=== PATIENT | female | born 1985 | race Caucasian/White ===

== ENCOUNTER 2016-08-05 12:41 | Emergency (ER) | payer OTHER ==
--- NOTE | 2016-08-05 13:45 | ED CLINICAL REPORT ---
Clinical Report - Physicians/Mid Levels [facility] [address] [place] [place] [address] 08/05/2016 12:42 Patient: CARLEEN COX Time Seen: 1300 Aug 05 2016. Arrived- By private vehicle. Historian- patient. HISTORY OF PRESENT ILLNESS Chief Complaint: COUGH. This started just prior to arrival and is still present. The illness is described as mild. No difficulty breathing, chest pain, fever, muscle aches or chills. No sore throat, hoarseness or nasal congestion. Additional history - No known contact with a sick individual. (29 week iup, who reports she has had a cough over the last 7 or 8 days, worsening over the last 2 days, some aspects of shortness of breath. No vag bleeding, at times has minor non frequent contracts, her correction officer city or county jail reports these are viki card, none today. Some sick contacts, at home, including her kids. NO h/o pe/ dvt, no le swelling. NO chest pain, no new back pain.). REVIEW OF SYSTEMS No headache, vomiting, diarrhea, pedal edema or calf pain. No skin rash. Currently . All systems otherwise negative, except as recorded above. SOCIAL HISTORY Never smoker. No alcohol use or drug use. ADDITIONAL NOTES The nursing notes have been reviewed. PHYSICAL EXAM Vital Signs: 08/05/2016 12:51 BP: 141/74. HR: 98. RR: 18. O2 saturation: 96%. Temp: 98.1 F. Pain level now: 0/10. Appearance: Alert. No acute distress. Eyes: Eyes normal inspection. ENT: Pharynx normal. Uvula midline. No mouth ulcerations or tonsillar exudate. Neck: Normal inspection. No meningeal signs. CVS: Normal heart rate and rhythm. Heart sounds normal. Normal rhythm. Respiratory: No respiratory distress. Breath sounds normal. No retractions or splinting. Abdomen: Gravid uterus (slightly above umbilicus). No abdominal tenderness. Back: Normal inspection. Skin: Skin warm. Normal skin color. PROGRESS AND PROCEDURES Course of Care: FHT 145-155 Patient in the ER is afebrile, lungs clear, good O2 sat, tachycardia. patient with negative rapid influenza in there, given persistent symptoms, an third trimester patient, will treat with azithromycin. patient has good follow up. Patient is stable. Physical exam findings are improved. Symptoms better. Patient/family counseled. Disposition: Discharged. CLINICAL IMPRESSION Acute bronchitis. INSTRUCTIONS Drink plenty of fluids. Prescription Medications: Zithromax 250 mg tablets: take 2 orally today, followed by 1 daily for the next 4 days. No refills. Substitution is permissible. OTC Medications: Acetaminophen (available over the counter): take according to label instructions. Follow-up: Follow up with your doctor in three days. (Electronically signed by Fang Brower P.A.-C 08/05/2016 14:04)
--- NOTE | 2016-08-05 13:45 | ED ORDER SUMMARY ---
..... Patient: CARLEEN COX OrderSheet [facility] VisitID: [id number] [address] [place] [address] 30y, F Registration Date/Time: 08/05/2016 ORDER SHEET Weight: 86.1 kg (stated) Allergies: None GENERAL ORDERS: Rapid Influenza Screen (Nasal Pharyngeal) (nasal) Urgent (12:58 08/05/2016 JBoardley R.N. per protocol) (12:59 [facility]) Heart Tones (12:59 08/05/2016 Amie R.N. per protocol) (13:04 [facility]) Heart Tones (13:00 08/05/2016 August Chambers) (Cancelled: Duplicate Order13:04 [facility]) MEDICATION ORDERS: IV FLUIDS: ORDER SHEET NOTES: [Electronically signed by Fang Brower P.A.-C (14:04 08/05/2016)] [Electronically signed by Cade Altamirano R.N. (15:48 08/05/2016)] [Electronically locked/signed by Cade Altamirano R.N. (15:48 08/05/2016)]
--- NOTE | 2016-08-05 13:45 | ED ORDER SUMMARY ---
..... Patient: CARLEEN COX OrderSheet [facility] VisitID: [id number] [address] [place] [address] 30y, F Registration Date/Time: 08/05/2016 ORDER SHEET Weight: 86.1 kg (stated) Allergies: None GENERAL ORDERS: Rapid Influenza Screen (Nasal Pharyngeal) (nasal) Urgent (12:58 08/05/2016 JBoardley R.N. per protocol) (12:59 [facility]) Heart Tones (12:59 08/05/2016 Amie R.N. per protocol) (13:04 [facility]) Heart Tones (13:00 08/05/2016 August Chambers) (Cancelled: Duplicate Order13:04 [facility]) MEDICATION ORDERS: IV FLUIDS: ORDER SHEET NOTES: [Electronically signed by Fang Brower P.A.-C (14:04 08/05/2016)] [Electronically signed by Cade Altamirano R.N. (15:48 08/05/2016)] [Electronically locked/signed by Cade Altamirano R.N. (15:48 08/05/2016)]
--- NOTE | 2016-08-05 13:45 | ED CLINICAL REPORT ---
Clinical Report - Physicians/Mid Levels [facility] [address] [place] [place] [address] 08/05/2016 12:42 Patient: CARLEEN COX Time Seen: 1300 Aug 05 2016. Arrived- By private vehicle. Historian- patient. HISTORY OF PRESENT ILLNESS Chief Complaint: COUGH. This started just prior to arrival and is still present. The illness is described as mild. No difficulty breathing, chest pain, fever, muscle aches or chills. No sore throat, hoarseness or nasal congestion. Additional history - No known contact with a sick individual. (29 week iup, who reports she has had a cough over the last 7 or 8 days, worsening over the last 2 days, some aspects of shortness of breath. No vag bleeding, at times has minor non frequent contracts, her traffic assistant reports these are viki card, none today. Some sick contacts, at home, including her kids. NO h/o pe/ dvt, no le swelling. NO chest pain, no new back pain.). REVIEW OF SYSTEMS No headache, vomiting, diarrhea, pedal edema or calf pain. No skin rash. Currently . All systems otherwise negative, except as recorded above. SOCIAL HISTORY Never smoker. No alcohol use or drug use. ADDITIONAL NOTES The nursing notes have been reviewed. PHYSICAL EXAM Vital Signs: 08/05/2016 12:51 BP: 141/74. HR: 98. RR: 18. O2 saturation: 96%. Temp: 98.1 F. Pain level now: 0/10. Appearance: Alert. No acute distress. Eyes: Eyes normal inspection. ENT: Pharynx normal. Uvula midline. No mouth ulcerations or tonsillar exudate. Neck: Normal inspection. No meningeal signs. CVS: Normal heart rate and rhythm. Heart sounds normal. Normal rhythm. Respiratory: No respiratory distress. Breath sounds normal. No retractions or splinting. Abdomen: Gravid uterus (slightly above umbilicus). No abdominal tenderness. Back: Normal inspection. Skin: Skin warm. Normal skin color. PROGRESS AND PROCEDURES Course of Care: FHT 145-155 Patient in the ER is afebrile, lungs clear, good O2 sat, tachycardia. patient with negative rapid influenza in there, given persistent symptoms, an third trimester patient, will treat with azithromycin. patient has good follow up. Patient is stable. Physical exam findings are improved. Symptoms better. Patient/family counseled. Disposition: Discharged. CLINICAL IMPRESSION Acute bronchitis. INSTRUCTIONS Drink plenty of fluids. Prescription Medications: Zithromax 250 mg tablets: take 2 orally today, followed by 1 daily for the next 4 days. No refills. Substitution is permissible. OTC Medications: Acetaminophen (available over the counter): take according to label instructions. Follow-up: Follow up with your doctor in three days. (Electronically signed by Fang Brower P.A.-C 08/05/2016 14:04)
--- NOTE | 2016-08-05 13:45 | ED NURSING NOTES ---
Clinical Report - Nurses [facility] [address] [place] [address] 08/05/2016 12:42 Patient: CARLEEN COX TRIAGE Triage time 12:51. Acuity: LEVEL 4. Chief Complaint: Possible FLU EXPOSURE. 12:51 08/05/16. 12:51 08/05/16. Alert. No acute distress. --12:55 Cade Altamirano R.N. 12:51 08/05/16. BP: 141/74. HR: 98. RR: 18. O2 saturation: 96% on room air. Temp: 98.1 F (oral). Pain level now: 0/10. --12:55 Cade Altamirano R.N. HEART TONES: heart tones present (145 - 155). --13:13 Tatiana Menon. Weight: 86.1 kg stated. Height/Length: 62 inches Per Patient. BMI: 34.8. --12:51 Cade Altamirano R.N. Medications Vitamins Oral. --12:53 Cade Altamirano R.N. Medication/allergy information source: the patient. --12:55 Cade Altamirano R.N. Allergies None. --12:53 Cade Altamirano R.N. History Arrived by public transportation and accompanied by family. Primary physician (SUZANNE GARDNER LM). 12:51 08/05/16. Onset. (2 days). She has had contact with a sick family member. Treatment WOOD BARKER: None. PAST MEDICAL HX: Last normal menstrual period- December 2015. Confirmed . Has had care. Immunizations not up to date. SOCIAL HX: Never smoker. No alcohol use or drug use. No recent travel. She has had contact with a sick individual. ABUSE ASSESSMENT: No report of abuse. FALL RISK ASSESSMENT: Fall risk assessment completed. No fall risk identified. NUTRITIONAL RISK ASSESSMENT: The nutritional risk assessment revealed no deficiencies. FUNCTIONAL ASSESSMENT: Functional assessment: no impairments noted. LEARNING NEEDS ASSESSMENT: The learning needs assessment revealed no barriers. SKIN INTEGRITY ASSESSMENT: Skin integrity risk assessment completed. No skin integrity risk identified. --12:55 Cade Altamirano R.N. ADDITIONAL SURGERIES: no known surgeries. Assessment 12:51 08/05/16. --12:55 Cade Altamirano R.N. Interventions 12:51 08/05/16. 12:51 08/05/16. ID and allergy band on patient. To treatment room. --12:55 Cade Altamirano R.N. PHYSICAL ASSESSMENT 12:08/05/16. Ambulatory to room. GENERAL / NEURO / PSYCH: Alert. Oriented X 4. Appears in no acute distress. RESPIRATORY: Respirations not labored. SKIN: Skin is warm and dry. --12:55 Cade Altamirano R.N. NURSING PROGRESS NOTES 12:55 08/05/16. The plan of care for this patient has been created. Patient gowned. Head of bed elevated. Reassurance given. Two patient identifiers checked. Call light placed in reach. Side rails up x 2. Bed placed in lowest position. Brakes of bed on. Brakes of chair on. --12:55 Cade Altamirano R.N. 12:08/05/16. Patient ready for evaluation- chart flagged and notification provided. --12:55 Cade Altamirano R.N. Checked patient name and birthdate: patient confirmed. Flu swab obtained by RN via nasal pharyngeal swab. Labeled in the presence of the patient. --12:58 Tatiana Menon 12:58 08/05/16. Patient ID band checked for patient name and birthdate. Flu swab obtained by RN via nasal pharyngeal swab. Labeled in the presence of the patient and sent to lab. --12:58 Cade Altamirano R.N. DISPOSITION / DISCHARGE 13:47 08/05/16. Condition at departure: improved. The goals identified in the patient's plan of care were met. No learning barriers present. Discharge instructions provided and reviewed with the patient. Reviewed warnings. Reviewed medication(s). Treatments reviewed. Patient verbalized understanding. Written instructions provided in [place]. The patient was discharged by the physician team assistant. She was discharged home and accompanied by family. She left the Emergency Department ambulatory and via private vehicle. Family member driving. FALL RISK ASSESSMENT: Fall risk assessment completed. No fall risk identified. --13:47 Cade Altamirano R.N. 13:46 08/05/16. BP: 134/72. HR: 80. RR: 14. O2 saturation: 100% on room air. Temp: 98.2 F (oral). --13:47 Cade Altamirano R.N. 13:47 08/05/16. Departure time: 13:47. --13:47 Cade Altamirano R.N. Locked/Released at 08/05/2016 15:48 by Cade Altamirano R.N.
--- NOTE | 2016-08-05 13:45 | ED NURSING NOTES ---
Clinical Report - Nurses [facility] [address] [place] [address] 08/05/2016 12:42 Patient: CARLEEN COX TRIAGE Triage time 12:51. Acuity: LEVEL 4. Chief Complaint: Possible FLU EXPOSURE. 12:51 08/05/16. 12:51 08/05/16. Alert. No acute distress. --12:55 Cade Altamirano R.N. 12:51 08/05/16. BP: 141/74. HR: 98. RR: 18. O2 saturation: 96% on room air. Temp: 98.1 F (oral). Pain level now: 0/10. --12:55 Cade Altamirano R.N. HEART TONES: heart tones present (145 - 155). --13:13 Tatiana Menon. Weight: 86.1 kg stated. Height/Length: 62 inches Per Patient. BMI: 34.8. --12:51 Cade Altamirano R.N. Medications Vitamins Oral. --12:53 Cade Altamirano R.N. Medication/allergy information source: the patient. --12:55 Cade Altamirano R.N. Allergies None. --12:53 Cade Altamirano R.N. History Arrived by public transportation and accompanied by family. Primary physician (SUZANNE GARDNER LM). 12:51 08/05/16. Onset. (2 days). She has had contact with a sick family member. Treatment SECURITY AND PRIVACY CONSULTANT: None. PAST MEDICAL HX: Last normal menstrual period- December 2015. Confirmed . Has had care. Immunizations not up to date. SOCIAL HX: Never smoker. No alcohol use or drug use. No recent travel. She has had contact with a sick individual. ABUSE ASSESSMENT: No report of abuse. FALL RISK ASSESSMENT: Fall risk assessment completed. No fall risk identified. NUTRITIONAL RISK ASSESSMENT: The nutritional risk assessment revealed no deficiencies. FUNCTIONAL ASSESSMENT: Functional assessment: no impairments noted. LEARNING NEEDS ASSESSMENT: The learning needs assessment revealed no barriers. SKIN INTEGRITY ASSESSMENT: Skin integrity risk assessment completed. No skin integrity risk identified. --12:55 Cade Altamirano R.N. ADDITIONAL SURGERIES: no known surgeries. Assessment 12:51 08/05/16. --12:55 Cade Altamirano R.N. Interventions 12:51 08/05/16. 12:51 08/05/16. ID and allergy band on patient. To treatment room. --12:55 Cade Altamirano R.N. PHYSICAL ASSESSMENT 12:08/05/16. Ambulatory to room. GENERAL / NEURO / PSYCH: Alert. Oriented X 4. Appears in no acute distress. RESPIRATORY: Respirations not labored. SKIN: Skin is warm and dry. --12:55 Cade Altamirano R.N. NURSING PROGRESS NOTES 12:55 08/05/16. The plan of care for this patient has been created. Patient gowned. Head of bed elevated. Reassurance given. Two patient identifiers checked. Call light placed in reach. Side rails up x 2. Bed placed in lowest position. Brakes of bed on. Brakes of chair on. --12:55 Cade Altamirano R.N. 12:08/05/16. Patient ready for evaluation- chart flagged and notification provided. --12:55 Cade Altamirano R.N. Checked patient name and birthdate: patient confirmed. Flu swab obtained by RN via nasal pharyngeal swab. Labeled in the presence of the patient. --12:58 Tatiana Menon 12:58 08/05/16. Patient ID band checked for patient name and birthdate. Flu swab obtained by RN via nasal pharyngeal swab. Labeled in the presence of the patient and sent to lab. --12:58 Cade Altamirano R.N. DISPOSITION / DISCHARGE 13:47 08/05/16. Condition at departure: improved. The goals identified in the patient's plan of care were met. No learning barriers present. Discharge instructions provided and reviewed with the patient. Reviewed warnings. Reviewed medication(s). Treatments reviewed. Patient verbalized understanding. Written instructions provided in Ukrainian. The patient was discharged by the physician assistant teacher. She was discharged home and accompanied by family. She left the Emergency Department ambulatory and via private vehicle. Family member driving. FALL RISK ASSESSMENT: Fall risk assessment completed. No fall risk identified. --13:47 Cade Altamirano R.N. 13:46 08/05/16. BP: 134/72. HR: 80. RR: 14. O2 saturation: 100% on room air. Temp: 98.2 F (oral). --13:47 Cade Altamirano R.N. 13:47 08/05/16. Departure time: 13:47. --13:47 Cade Altamirano R.N. Locked/Released at 08/05/2016 15:48 by Cade Altamirano R.N.
--- NOTE | 2016-08-05 15:48 | ED MED RECONCILIATION SUMMARY ---
Patient: CARLEEN COX Medication Reconciliation Report [facility] VisitID: [id number] [place] [address] 30y, F Registration Date/Time: 08/05/2016 Weight: 86.1 kg Height/Length: 62 in. BMI: 34.8 ALLERGIES: None The patient's Home Medications are listed below: THE FOLLOWING MEDICATIONS NEED TO BE RECONCILED: Vitamins Oral The source(s) of the original Home Medication information: patient The following Medications were given to the patient in the Emergency Department: None. The following Medications were prescribed to the patient: Acetaminophen (available over the counter): take according to label instructions. -- Fang Brower, P.A.-Kaci Zithromax 250 mg tablets: take 2 orally today, followed by 1 daily for the next 4 days. No refills. Substitution is permissible. -- Fang Brower, P.A.-C
--- NOTE | 2016-08-05 15:48 | ED MAR SUMMARY ---
..... Medication Administration Record [facility] [address] [place], [place] [id number] Patient: CARLEEN COX Visit ID: [id number] 30y, F Weight: 86.1 kg Height/Length: 62 in BMI: 34.8 ALLERGIES: None
--- NOTE | 2016-08-05 15:48 | ED DISCHARGE INSTRUCTIONS ---
Patient: CARLEEN COX General Instructions [facility] VisitID: [id number] [place] [address] 30y, F Registration Date/Time: 08/05/2016 Acute bronchitis. INSTRUCTIONS Drink plenty of fluids. Prescription Medications: Zithromax 250 mg tablets: take 2 orally today, followed by 1 daily for the next 4 days. No refills. Substitution is permissible. OTC Medications: Acetaminophen (available over the counter): take according to label instructions. Follow-up: Follow up with your doctor in three days. ADDITIONAL INFORMATION Bronchitis (Adult: Abx Tx) BRONCHITIS is an infection of the air passages (bronchial tubes). It often occurs during the common cold. Symptoms include cough with mucus (phlegm) and low-grade fever. Bronchitis usually lasts 7-14 days. Mild cases can be treated with simple home remedies. More severe infection is treated with an antibiotic. Home Care: If symptoms are severe, rest at home for the first 2-3 days. When you resume activity, don't let yourself get too tired. Do not smoke. Avoid being exposed to the smoke of others. You may use acetaminophen (Tylenol) or ibuprofen (Motrin, Advil) to control fever or pain, unless another medicine was prescribed for this. [NOTE: If you have chronic liver or kidney disease or ever had a stomach ulcer or GI bleeding, talk with your doctor before using these medicines.] Your appetite may be poor, so a light diet is fine. Avoid dehydration by drinking 6-8 glasses of fluids per day (water, soft, drinks, juices, tea, soup, etc.). Extra fluids will help loosen secretions in the lungs. [id number] cough medicines that containdextromethorphan(such as Robitussin DM) and decongestants (Actifed or Sudafed) may help relieve cough and congestion. [NOTE: Do not use decongestants if you have high blood pressure.] Finish all antibiotic medicine, even if you are feeling better after only a few days. Follow Up with your doctor or as directed if you dont start to feel better after three days. [NOTE: If you are age 65 or older, or if you have chronic asthma or COPD, we recommend a PNEUMOCOCCAL VACCINATION every five years and a yearly INFLUENZAVACCINATION (FLU-SHOT) every . Ask your doctor about this. If you had an X-ray, a radiologist will review it. You will be notified of any new findings that may affect your care.] Get Prompt Medical Attention if any of the following occur: Fever over 100.4F (38.0C) for more than three days Trouble breathing, wheezing or pain with breathing Coughing up blood or increased amounts of colored sputum Weakness, drowsiness, headache, facial pain, ear pain or a stiff neck You have been given the following additional information: Bronchitis, Antiobiotic Treatment (Adult) (Electronically signed by Fang Brower P.A.-C 08/05/2016 14:04)
--- NOTE | 2016-08-05 15:48 | ED MED RECONCILIATION SUMMARY ---
Patient: CARLEEN COX Medication Reconciliation Report [facility] VisitID: [id number] [place] [address] 30y, F Registration Date/Time: 08/05/2016 Weight: 86.1 kg Height/Length: 62 in. BMI: 34.8 ALLERGIES: None The patient's Home Medications are listed below: THE FOLLOWING MEDICATIONS NEED TO BE RECONCILED: Vitamins Oral The source(s) of the original Home Medication information: patient The following Medications were given to the patient in the Emergency Department: None. The following Medications were prescribed to the patient: Acetaminophen (available over the counter): take according to label instructions. -- Fang Brower, P.A.-Kaci Zithromax 250 mg tablets: take 2 orally today, followed by 1 daily for the next 4 days. No refills. Substitution is permissible. -- Fang Brower, P.A.-C
--- NOTE | 2016-08-05 15:48 | ED MAR SUMMARY ---
..... Medication Administration Record [facility] [address] [place], [place] [id number] Patient: CARLEEN COX Visit ID: [id number] 30y, F Weight: 86.1 kg Height/Length: 62 in BMI: 34.8 ALLERGIES: None
== END 2016-08-05 13:47 | disposition home or self-care (01) ==
LOC: ED SRH 12:41
DX: J20.9 Acute bronchitis, unspecified (principal); Z33.1 Pregnant state, incidental
CPT/HCPCS: 91400